=== PATIENT | female | born 1990 | race American Indian/Alaskan Native ===

== ENCOUNTER 2017-08-07 16:45 | Emergency (ER) | payer MEDICAID ==
[2017-08-07 16:55] VITALS: BP 145/92; PULSE 121; RESP 16; TEMP 98.6; O2SAT 98
--- NOTE | 2017-08-07 18:11 | ED PDOC ---
HPI: Psych/Substance Abuse Time Seen by Provider: 08/07/17 17:04 Chief Complaint (Nursing): Syncope Chief Complaint (Provider): i need to check myself in to the [facility] Caveat: Uncooperative History Per: Patient, EMS History/Exam Limitations: clinical condition Onset/Duration Of Symptoms: Unknown Current Symptoms Are (Timing): Intermittent Episodes Suicide/Self Injury Attempted (Context): None Modifying Factor(s): None Severity: Moderate Associated Symptoms: Anxiety, Agitation, Depression, Paranoia, Suicidal Thoughts Involuntary Hold By: Emergency Physician Additional Complaint(s): 26yo female arrives w EMS called 911 told them she thought she was going to pass out, in ED denies syncope but has "bad thoughts" and wants to see a psychiatrist. Denies drug or etoh abuse. Denies headache, fever, trauma or ingestion. Past Medical History Reviewed: Historical Data, Nursing Documentation, Vital Signs Vital Signs: Last Vital Signs Temp 98.6 F 08/07/17 16:54 Pulse 121 H 08/07/17 16:54 Resp 16 08/07/17 16:54 BP 145/92 H 08/07/17 16:54 Pulse Ox 98 08/07/17 16:54 - Medical History PMH: Schizophrenia Denies: Diabetes, Hepatitis, HIV, HTN, Chronic Kidney Disease, Seizures, Sexually Transmitted Disease - Family History Family History: States: Unknown Family Hx - Living Arrangements Living Arrangements: Other - Social History Current smoker - smoking cessation education provided: No - Immunization History Hx Tetanus Toxoid Vaccination: No Hx Influenza Vaccination: No Hx Pneumococcal Vaccination: No - Home Medications Home Medications: Ambulatory Orders Medication Instructions Recorded Risperidone [Risperdal M-TAB] 1 mg PO DAILY 30 Days #30 odt 06/10/17 Risperidone [Risperdal M-TAB] 2 mg PO HS 30 Days #30 odt 06/10/17 - Allergies Allergies/Adverse Reactions: Allergies Allergy/AdvReac Type Severity Reaction Status Date / Time No Known Allergies Allergy Verified 08/07/17 16:54 - Laboratory Results Result Diagrams: 08/07/17 18:10 08/07/17 18:10 - ECG O2 Sat by Pulse Oximetry: 98 Medical Decision Making Medical Decision Making: labs reveal +PCP in utox, mild leukopenia, chem unremarkable EKG sinus without ectopy, normal intervals without ST changes crisis eval performed, admission was not recommended DC from ED. Disposition - Clinical Impression Clinical Impression: Adjustment disorder, PCP abuse - Patient ED Disposition Is Patient to be Admitted: No Counseled Patient/Family Regarding: Studies Performed, Diagnosis, Need For Followup - Disposition Disposition: Routine/Home Disposition Time: 19:25 Condition: STABLE Additional Instructions: Return to ER for any concern. Instructions: Suicide Prevention for Children and Adolescents (ED), Mood Disorders (ED) Forms: [employer] ([place]ish)
[2017-08-07 18:39] LABS: BASO % 0.7 % (0.0-2.0); EOS % 0.4 % (0.0-4.0); HEMOGLOBIN 12.1 g/dL (12.0-16.0); LYMPH # 1.3 K/uL (1.0-4.3); LYMPH % 51.1 % (20.0-40.0); MEAN CELL VOLUME 91.7 fl (81.0-99.0); MEAN CORPUSCULAR HEMOGLOBIN 29.2 pg (27.0-31.0); MEAN CORPUSCULAR HGB CONC 31.8 g/dL (33.0-37.0); MEAN PLATELET VOLUME 9.1 fl (7.2-11.7); MONO # 0.2 K/uL (0.0-0.8); MONO % 8.4 % (0.0-10.0); NEUT % 39.4 % (50.0-75.0); NRBC % 0.4 % (0.0-0.0); RBC 4.12 Mil/uL (3.80-5.20); WHITE BLOOD COUNT 2.6 K/uL (4.8-10.8)
[2017-08-07 18:51] LABS: SQUAMOUS EPITHIAL 1 /hpf (0-5); URINE BACTERIA RARE (<OCC); URINE BILIRUBIN NEGATIVE (NEGATIVE); URINE BLOOD NEGATIVE (NEGATIVE); URINE CLARITY CLEAR (Clear); URINE COLOR STRAW (YELLOW); URINE GLUCOSE (UA) NEG (Normal); URINE LEUKOCYTE ESTERASE NEG Leu/uL (Negative); URINE NITRATE NEGATIVE (NEGATIVE); URINE PROTEIN NEGATIVE (NEGATIVE); URINE UROBILINOGEN 0.2-1.0 mg/dL (0.2-1.0)
[2017-08-07 18:52] LABS: ALB/GLOB RATIO 1.2 (1.0-2.1); ALBUMIN 4.3 g/dL (3.5-5.0); ALT/SGPT 51 U/L (9-52); AST/SGOT 49 U/L (14-36); BLOOD UREA NITROGEN 10 mg/dl (7-17); CALCIUM 9.3 mg/dL (8.4-10.2); GFR AFRICAN-AMERICAN > 60; GFR NON-AFRICAN AMERICAN > 60
[2017-08-07 19:03] LABS: BARBITURATES, UR NEGATIVE (NEGATIVE); BENZODIAZEPINES, UR NEGATIVE (NEGATIVE); OPIATES, UR NEGATIVE (NEGATIVE); PHENCYCLIDINE, UR POSITIVE (NEGATIVE)
--- NOTE | 2017-08-08 11:33 | CARD ---
APPROVED REPORT EKG Measurement Heart [id number] <Conclusion> Normal sinus rhythm Normal ECG
== END 2017-08-07 19:20 | disposition home or self-care (01) ==
LOC: H.ER 16:45
DX: F43.20 Adjustment disorder, unspecified (principal); F16.10 Hallucinogen abuse, uncomplicated; F20.9 Schizophrenia, unspecified

== ENCOUNTER 2017-12-28 01:03 | Emergency (ER) | payer MEDICAID ==
[2017-12-28 01:03] VITALS: BMI 25.1
[2017-12-28 01:22] VITALS: TEMP 98.7
--- NOTE | 2017-12-28 02:27 | ED PDOC ---
Lower Extremity Pain/Injury Time Seen by Provider: 12/28/17 01:05 Chief Complaint (Nursing): Lower Extremity Problem/Injury Chief Complaint (Provider): Leg pain History Per: Patient History/Exam Limitations: no limitations Onset/Duration Of Symptoms: Days Current Symptoms Are (Timing): Still Present Additional Complaint(s): 27 yo female with no medical problems presents with leg pain. PT states she has not taken anything for pain. Past Medical History Reviewed: Historical Data, Nursing Documentation, Vital Signs Vital Signs: Last Vital Signs Temp 98.7 F 12/28/17 01:19 Pulse 128 H 12/28/17 01:19 Resp 18 12/28/17 01:19 BP 121/80 12/28/17 01:19 Pulse Ox 100 12/28/17 01:19 - Medical History PMH: Bipolar Disorder - Surgical History Surgical History: No Surg Hx - Family History Family History: States: No Known Family Hx - Living Arrangements Living Arrangements: With Family - Social History Current smoker - smoking cessation education provided: No - Home Medications Home Medications: Ambulatory Orders Medication Instructions Recorded No Known Home Med 11/01/17 - Allergies Allergies/Adverse Reactions: Allergies Allergy/AdvReac Type Severity Reaction Status Date / Time No Known Allergies Allergy Verified 12/28/17 01:19 Review of Systems ROS Statement: Except As Marked, All Systems Reviewed And Found Negative Constitutional: Negative for: Fever, Chills, Sweats Musculoskeletal: Positive for: Leg Pain Physical Exam - Reviewed Nursing Documentation Reviewed: Yes Vital Signs Reviewed: Yes - Physical Exam Appears: Positive for: Well, Non-toxic, No Acute Distress Head Exam: Positive for: ATRAUMATIC, NORMAL INSPECTION, NORMOCEPHALIC Skin: Positive for: Normal Color, Warm, DRY Eye Exam: Positive for: Normal appearance ENT: Positive for: Normal ENT Inspection Neck: Positive for: Normal, Painless ROM Cardiovascular/Chest: Positive for: Regular Rate, Rhythm Respiratory: Positive for: CNT, Normal Breath Sounds Back: Positive for: Normal Inspection Extremity: Positive for: Normal ROM Neurologic/Psych: Positive for: Alert, Oriented - ECG O2 Sat by Pulse Oximetry: 100 Medical Decision Making Medical Decision Making: Pt acting bizarre. Pt states she needed to be admitted so she could be watched. Crisis evaluation completed. Disposition - Clinical Impression Clinical Impression: Leg pain Counseled Patient/Family Regarding: Diagnosis, Need For Followup - Disposition Disposition: Routine/Home Disposition Time: 02:30 Condition: STABLE Instructions: Muscle and Bone Pain (DC) Forms: [employer] (Sinhala)
[2017-12-28 06:54] VITALS: BP 119/79; PULSE 75; RESP 16; O2SAT 98
== END 2017-12-28 06:54 | disposition home or self-care (01) ==
LOC: H.ER 01:03 → MERGE 01:03 → H.ER 06:54
DX: F31.9 Bipolar disorder, unspecified (principal)